=== PATIENT | female | born 1965 | race Caucasian/White ===

== ENCOUNTER 2016-02-15 13:43 | Outpatient (CLI) | payer MEDICARE, OTHER ==
[2009-01-15 12:52] VITALS: BP 91/48
[~2016-02-15] VITALS: Ht 160 cm; Wt 104.0 kg
[~2016-02-15 13:43] MED LIST: AMARYL1 MG PO; AMITRIPTYLINE H25 M1 PO; AMITRIPTYLINE H75 M1 PO; ATIVAN 1MG T1 MG/TAB PO; CO Q10 PO; CO Q1030 MG PO; DOMPERIDONE10 MG/CAP PO; ELAVIL100 MG PO; ESTROPIPATE; GLUCOPHAGE500 MG/TAB PO; INDERAL 20MG20 MG PO; KEPPRA500 MG PO; L-CARNITINE500 MG PO; LEVBID0.375 MG; LEVOCARNITINE PO; LEVOTHROID0.125 MG PO; LEVSIN 0.10.125 MG/T PO; LORTAB 7.5/5001 TAB PO; MULTIPLE VITAMI1 CAP PO; NORCO 325 MG-7.1 TAB PO; OGEN 0.6250.75 MG PO; PRILOSEC 20MG20 MG PO; SYNTHROID 0.10.15 MG PO; SYNTHROID0.137 MG PO; TRIAZADONE; VICODIN PO; ZOFRAN 8MG8 MG PO; ZONEGRAN 100MG100 MG PO; ZONISAMIDE25 MG PO; ZYRTEC5 MG PO
[2016-02-15 14:30] VITALS: BP 110/73; PULSE 91; TEMP 98
== END 2016-02-15 14:50 | disposition home or self-care (01) ==
LOC: EUO 13:43
DX: G43.A0 Cyclical vomiting, in migraine, not intractable (principal); Z45.2 Encounter for adjustment and management of vascular access device
CPT/HCPCS: J1644

== ENCOUNTER 2016-03-22 13:56 | Outpatient (CLI) | payer MEDICARE, OTHER ==
[2009-01-15 12:52] VITALS: BP 91/48
[~2016-03-22] VITALS: Ht 160 cm; Wt 102.2 kg
[2016-03-22 14:31] VITALS: BP 106/57; PULSE 69; TEMP 97.8
== END 2016-03-22 14:33 | disposition home or self-care (01) ==
LOC: EUO 13:56
DX: Z45.2 Encounter for adjustment and management of vascular access device (principal); G43.A0 Cyclical vomiting, in migraine, not intractable
CPT/HCPCS: J1644

== ENCOUNTER 2016-04-24 12:45 | Outpatient (CLI) | payer MEDICARE, OTHER ==
[2009-01-15 12:52] VITALS: BP 91/48
[~2016-04-24] VITALS: Ht 160 cm; Wt 99.0 kg
[2016-04-24 13:31] VITALS: BP 113/62; PULSE 62; TEMP 97.2
== END 2016-04-24 17:00 | disposition home or self-care (01) ==
LOC: EUO 12:45
DX: G43.A0 Cyclical vomiting, in migraine, not intractable (principal); Z45.2 Encounter for adjustment and management of vascular access device
CPT/HCPCS: J2997

== ENCOUNTER 2016-04-27 10:04 | Emergency (ER) | payer MEDICARE, OTHER ==
[2009-01-15 12:52] VITALS: BP 91/48
[~2016-04-27] VITALS: Ht 160 cm; Wt 99.1 kg
[2016-04-27 10:07] VITALS: BP 129/95; TEMP 96.6
[2016-04-27 10:48] LABS: BASO % 0.2 % (0.0-2.0); EOS # 0.1 (0.0-0.7); EOS % 0.9 % (0-4.0); GRAN # 7.5 (1.4-6.5); GRAN % 78.6 % (42.2-75.2); HEMATOCRIT 46.8 % (37.0-47.0); HEMOGLOBIN 15.3 g/dl (12.5-16.0); LYMPH # 1.6 (1.2-3.4); LYMPH % 16.5 % (20.0-51.0); MEAN CELL VOLUME 85 fl (80.0-100.0); MEAN CORPUSCULAR HEMOGLOBIN 28 pg (27.0-31.0); MEAN CORPUSCULAR HGB CONC 33 g/dl (33.0-37.0); MEAN PLATELET VOLUME 11.6 fl (7.4-10.4); MONO # 0.3 (0.1-0.6); MONO % 3.5 % (1.7-9.3); PLATELET COUNT 308 K/mm3 (130-400); RED BLOOD COUNT 5.51 M/mm3 (4.10-5.30); REDCELL DISTRIBUTION WIDTH-CV 13.3 % (11.5-14.5); WHITE BLOOD COUNT 9.5 K/mm3 (4.8-10.8)
[2016-04-27 10:55] LABS: ADJUSTED CALCIUM 9.9 mg/dL (8.4-10.2); ALANINE AMINOTRANSFERASE 61 U/L (9-52); ALBUMIN 4.8 gm/dL (3.5-5.0); ALKALINE PHOSPHATASE 101 U/L (50-136); ANION GAP 17 mmol/L (7-16); BILIRUBIN,TOTAL 0.7 mg/dL (0.0-1.0); BLOOD UREA NITROGEN 12 mg/dL (7-17); CALCIUM 10.5 mg/dL (8.4-10.2); CARBON DIOXIDE 23 mmol/L (22-30); CHLORIDE 102 mmol/L (98-107); CREATININE, serum 0.67 mg/dL (0.52-1.25); GLUCOSE 178 mg/dL (74-106); LIPASE 38 U/L (23-300); SODIUM 141 mmol/L (137-145); TOTAL PROTEIN 8.7 gm/dL (6.4-8.2)
[2016-04-27 11:14] LABS: TROPONIN-I < 0.012 ng/mL (0.000-0.034)
[2016-04-27 11:43] LABS: PH 5 (5-8); SQUAMOUS EPITHELIAL 0-2 /hpf; URINE APPEARANCE Clear; URINE BACTERIA Rare /hpf; URINE BILIRUBIN Negative (NEGATIVE); URINE BLOOD Negative (NEGATIVE); URINE COLOR Yellow; URINE GLUCOSE Negative (NEGATIVE); URINE KETONE 2+ (NEGATIVE); URINE RBC 0-2 /hpf; URINE UROBILINOGEN Negative (NEGATIVE); URINE WBC 0-2 /hpf
[2016-04-27 11:51] VITALS: PULSE 82
== END 2016-04-27 11:52 | disposition home or self-care (01) ==
LOC: COL.ER 10:04
PROVIDERS: Family Medicine
DX: E86.9 Volume depletion, unspecified (principal); G43.A0 Cyclical vomiting, in migraine, not intractable; Z79.84 Long term (current) use of oral hypoglycemic drugs; R00.0 Tachycardia, unspecified; R10.13 Epigastric pain; R07.89 Other chest pain
CPT/HCPCS: J1200; J2060; J2405; J7030

== ENCOUNTER 2016-05-02 14:54 | Outpatient (CLI) | payer MEDICARE, OTHER ==
[2009-01-15 12:52] VITALS: BP 91/48
[~2016-05-02] VITALS: Ht 160 cm; Wt 98.6 kg
[2016-05-02 17:11] VITALS: BP 115/58; PULSE 75; TEMP 96.9
== END 2016-05-02 20:06 | disposition home or self-care (01) ==
LOC: EUO 14:54
DX: E86.0 Dehydration (principal); R11.10 Vomiting, unspecified
CPT/HCPCS: J1200; J2060; J3480; J7030

== ENCOUNTER 2016-05-06 21:29 | Emergency (ER) | payer MEDICARE, OTHER ==
[2009-01-15 12:52] VITALS: BP 91/48
[~2016-05-06] VITALS: Ht 160 cm; Wt 95.5 kg
[2016-05-06 21:35] VITALS: BP 159/78; TEMP 97.5
[2016-05-06] MEDS ORDERED: ZOFRAN ODT8 MG PO (21:40)
[2016-05-06 22:59] LABS: BASO # 0.1 (0.0-0.2); BASO % 0.8 % (0.0-2.0); EOS # 0.4 (0.0-0.7); EOS % 4.3 % (0-4.0); GRAN # 5.2 (1.4-6.5); GRAN % 57.5 % (42.2-75.2); HEMATOCRIT 45.6 % (37.0-47.0); LYMPH # 2.6 (1.2-3.4); LYMPH % 28.7 % (20.0-51.0); MEAN CELL VOLUME 83 fl (80.0-100.0); MEAN CORPUSCULAR HEMOGLOBIN 27 pg (27.0-31.0); MEAN CORPUSCULAR HGB CONC 33 g/dl (33.0-37.0); MONO # 0.8 (0.1-0.6); MONO % 8.3 % (1.7-9.3); PLATELET COUNT 277 K/mm3 (130-400); RED BLOOD COUNT 5.47 M/mm3 (4.10-5.30); REDCELL DISTRIBUTION WIDTH-CV 13.3 % (11.5-14.5); WHITE BLOOD COUNT 9.1 K/mm3 (4.8-10.8)
[2016-05-06 23:13] LABS: HYALINE CAST >12 /lpf; PH 5 (5-8); URINE APPEARANCE Cloudy; URINE BACTERIA Rare /hpf; URINE BILIRUBIN Negative (NEGATIVE); URINE BLOOD Negative (NEGATIVE); URINE COLOR Amber; URINE GLUCOSE Negative (NEGATIVE); URINE KETONE Trace (NEGATIVE); URINE RBC 0-2 /hpf; URINE WBC 0-2 /hpf
[2016-05-06 23:14] LABS: ADJUSTED CALCIUM 9.8 mg/dL (8.4-10.2); ALBUMIN 4.5 gm/dL (3.5-5.0); BILIRUBIN,TOTAL 0.8 mg/dL (0.0-1.0); CALCIUM 10.2 mg/dL (8.4-10.2); CREATININE, serum 0.74 mg/dL (0.52-1.25); POTASSIUM 3.4 mmol/L (3.4-5.0); TOTAL PROTEIN 8.1 gm/dL (6.4-8.2)
[2016-05-07] MEDS ORDERED: ZOFRAN 4MG T4 MG/TAB PO (01:12)
[2016-05-07 01:25] VITALS: PULSE 84
[2016-05-08] MEDS ORDERED: TRIAMCINOLONE A15 G1 TP (13:14)
[2016-05-08] MEDS ORDERED: ZYRTEC 10MG10 MG PO (13:16)
== END 2016-05-07 01:25 | disposition home or self-care (01) ==
LOC: COL.ER 21:29
PROVIDERS: Nurse Practitioner
DX: G43.A0 Cyclical vomiting, in migraine, not intractable (principal); E11.9 Type 2 diabetes mellitus without complications; R19.7 Diarrhea, unspecified; Z79.84 Long term (current) use of oral hypoglycemic drugs
CPT/HCPCS: J1200; J2060; J2405; J7030

== ENCOUNTER 2016-05-08 12:18 | Observation (INO) | payer MEDICARE, OTHER ==
[~2016-05-08] VITALS: Ht 160 cm; Wt 95.4 kg
[~2016-05-08 12:18] MED LIST changes: +ZOFRAN 4MG T4 MG/TAB PO; +ZOFRAN ODT8 MG PO
[2016-05-08] MEDS ORDERED: TRIAMCINOLONE A15 G1 TP (13:14)
[2016-05-08] MEDS ORDERED: ZYRTEC 10MG10 MG PO (13:16)
[2016-05-08 13:27] VITALS: BP 130/64; PULSE 77; TEMP 98.4
[2016-05-08 15:21] LABS: HEMATOCRIT 41.7 % (37.0-47.0); HEMOGLOBIN 13.4 g/dl (12.5-16.0); MEAN CELL VOLUME 86 fl (80.0-100.0); MEAN CORPUSCULAR HEMOGLOBIN 28 pg (27.0-31.0); MEAN CORPUSCULAR HGB CONC 32 g/dl (33.0-37.0); PLATELET COUNT 222 K/mm3 (130-400); RED BLOOD COUNT 4.88 M/mm3 (4.10-5.30); REDCELL DISTRIBUTION WIDTH-CV 13.4 % (11.5-14.5); WHITE BLOOD COUNT 7.3 K/mm3 (4.8-10.8)
[2016-05-08 15:23] LABS: ADD PATHOLOGY DIFF REVIEW NO
[2016-05-08 15:36] LABS: ADJUSTED CALCIUM 9.5 mg/dL (8.4-10.2); BILIRUBIN,TOTAL 0.8 mg/dL (0.0-1.0); CALCIUM 9.5 mg/dL (8.4-10.2); CREATININE, serum 0.77 mg/dL (0.52-1.25); MAGNESIUM 1.8 mg/dL (1.6-2.3); POTASSIUM 3.6 mmol/L (3.4-5.0); TOTAL PROTEIN 7.2 gm/dL (6.4-8.2)
[2016-05-08 15:56] LABS: BAND 4 % (0-10); EOSINOPHIL 2 % (0-4); METAMYELOCYTE 1 % (0-0); MICROCYTOSIS 1+; NEUTROPHILS 50 % (42.0-75.2); PLATELET ESTIMATE NORMAL (NORMAL); TOTAL CELLS COUNTED 100
[2016-05-08 16:03] VITALS: BP 104/57; PULSE 72; TEMP 98.1
[2016-05-08 21:02] VITALS: BP 118/57; PULSE 78; TEMP 97.9
[2016-05-08 21:06] VITALS: BP 118/57; PULSE 78; TEMP 97.8
[2016-05-09 07:13] LABS: PH 5 (5-8); SQUAMOUS EPITHELIAL 0-2 /hpf; URINE APPEARANCE Clear; URINE BACTERIA None Seen /hpf; URINE BILIRUBIN Negative (NEGATIVE); URINE BLOOD Negative (NEGATIVE); URINE COLOR Yellow; URINE GLUCOSE Negative (NEGATIVE); URINE KETONE 2+ (NEGATIVE); URINE RBC 0-2 /hpf; URINE UROBILINOGEN Negative (NEGATIVE)
[2016-05-09 08:27] VITALS: BP 119/57; PULSE 61; TEMP 97.9
[2016-05-09 09:18] LABS: CALCIUM 8.5 mg/dL (8.4-10.2); CREATININE, serum 0.61 mg/dL (0.52-1.25); POTASSIUM 3.5 mmol/L (3.4-5.0)
[2016-05-09 11:11] VITALS: BP 123/54; PULSE 60; TEMP 98.1
[2016-05-09 23:48] VITALS: BP 119/73; PULSE 99; TEMP 98.7
[2016-05-10 08:00] VITALS: PULSE 60
[2016-05-10] MEDS ORDERED: ATIVAN 1MG T1 MG/TAB PO (10:11)
[2016-05-10 11:54] VITALS: PULSE 65
== END 2016-05-10 18:00 | disposition home or self-care (01) ==
LOC: MEDICAL 12:18
PROVIDERS: Physician Assistant
DX: G43.A0 Cyclical vomiting, in migraine, not intractable (principal); E86.0 Dehydration; E11.9 Type 2 diabetes mellitus without complications; E03.9 Hypothyroidism, unspecified; J45.909 Unspecified asthma, uncomplicated; L20.9 Atopic dermatitis, unspecified; K21.9 Gastro-esophageal reflux disease without esophagitis; Z85.3 Personal history of malignant neoplasm of breast
CPT/HCPCS: G0378; G0379; J1650; J2060; J2270; J2405; J3410; J7030

== ENCOUNTER → 2016-06-12 | Outpatient (CLI) | payer MEDICARE, OTHER ==
[~2016-06-12] VITALS: Ht 160 cm; Wt 95.0 kg
[~2016-06-12] MED LIST changes: +TRIAMCINOLONE A15 G1 TP; +ZYRTEC 10MG10 MG PO
[2016-06-12 13:20] VITALS: BP 103/51; PULSE 51; TEMP 97.5
== END ==
LOC: EUO 05-25 13:00
DX: G43.A0 Cyclical vomiting, in migraine, not intractable (principal)

== ENCOUNTER → 2016-07-05 | Outpatient (CLI) | payer MEDICARE, OTHER | LOC: MHCPAIN 09:30 | DX: G89.29 Other chronic pain (principal); M79.651 Pain in right thigh; G57.11 Meralgia paresthetica, right lower limb | CPT/HCPCS: G0463; J1040 ==

== ENCOUNTER → 2016-08-04 | Outpatient (CLI) | payer MEDICARE, OTHER | LOC: MHCPAIN 09:08 | DX: G89.29 Other chronic pain (principal); M79.659 Pain in unspecified thigh; M79.2 Neuralgia and neuritis, unspecified | CPT/HCPCS: G0463 ==

== ENCOUNTER → 2016-08-09 | Outpatient (CLI) | payer MEDICARE, OTHER | LOC: MHCPAIN 10:16 | DX: G57.11 Meralgia paresthetica, right lower limb (principal) | CPT/HCPCS: J1040 ==

== ENCOUNTER → 2016-10-10 | Outpatient (CLI) | payer MEDICARE, OTHER | LOC: MHCPAIN 12:30 | DX: G89.29 Other chronic pain (principal); M79.2 Neuralgia and neuritis, unspecified; M79.659 Pain in unspecified thigh; R20.8 Other disturbances of skin sensation | CPT/HCPCS: G0463 ==

== ENCOUNTER 2016-10-17 14:45 | Outpatient (CLI) | payer MEDICARE, OTHER ==
[2016-10-17 15:00] VITALS: BP 118/50; PULSE 72; TEMP 98.3
== END 2016-10-17 17:30 | disposition home or self-care (01) ==
LOC: EUO 14:45
DX: G43.A0 Cyclical vomiting, in migraine, not intractable (principal)
CPT/HCPCS: J1644

== ENCOUNTER 2017-05-02 14:49 | Outpatient (CLI) | payer MEDICARE, OTHER ==
[~2017-05-02] VITALS: Ht 160 cm; Wt 99.0 kg
[~2017-05-02 14:49] MED LIST changes: +ZONEGRAN50 MG PO
[2017-05-02 15:30] VITALS: BP 117/47; PULSE 65; TEMP 97.6
== END 2017-05-02 16:00 | disposition home or self-care (01) ==
LOC: EUO 14:49
DX: Z45.2 Encounter for adjustment and management of vascular access device (principal); Z48.00 Encounter for change or removal of nonsurgical wound dressing
CPT/HCPCS: J1644

== ENCOUNTER 2017-05-16 13:08 | Outpatient (RCR) | payer MEDICARE, OTHER | END 2017-06-27 08:20 | disposition home or self-care (01) | LOC: WSPT 13:08 | DX: M76.51 Patellar tendinitis, right knee (principal); Z90.710 Acquired absence of both cervix and uterus; Z90.49 Acquired absence of other specified parts of digestive tract | CPT/HCPCS: G8978-GP; G8979-GP ==

== ENCOUNTER → 2017-06-22 | Outpatient (CLI) | payer MEDICARE, OTHER ==
[~2017-06-22] VITALS: Ht 160 cm; Wt 96.0 kg
[2017-06-22 13:59] VITALS: BP 120/69; PULSE 96; TEMP 98
== END ==
LOC: EUO 12:07
DX: G43.A0 Cyclical vomiting, in migraine, not intractable (principal); E86.0 Dehydration; Z45.2 Encounter for adjustment and management of vascular access device; Z79.84 Long term (current) use of oral hypoglycemic drugs; Z79.891 Long term (current) use of opiate analgesic; Z79.899 Other long term (current) drug therapy
CPT/HCPCS: J1200; J1644; J2060; J3480; J7030

== ENCOUNTER → 2017-09-07 | Outpatient (CLI) | payer MEDICARE, OTHER | LOC: MC.RAD 08-06 11:20 | DX: Z12.31 Encounter for screening mammogram for malignant neoplasm of breast (principal) ==

== ENCOUNTER → 2018-04-09 | Outpatient (CLI) | payer MEDICARE, OTHER | LOC: SUN.DIA 08:37 | DX: E11.9 Type 2 diabetes mellitus without complications (principal); E66.9 Obesity, unspecified ==

== ENCOUNTER → 2018-04-18 | Outpatient (CLI) | payer MEDICARE, OTHER | LOC: SUN.DIA 09:30 | DX: E11.9 Type 2 diabetes mellitus without complications (principal); E66.9 Obesity, unspecified | CPT/HCPCS: G0109 ==

== ENCOUNTER → 2018-04-25 | Outpatient (CLI) | payer MEDICARE, OTHER | LOC: SUN.DIA 09:30 | DX: E66.01 Morbid (severe) obesity due to excess calories (principal); Z76.89 Persons encountering health services in other specified circumstances; Z71.3 Dietary counseling and surveillance | CPT/HCPCS: G0109 ==

== ENCOUNTER → 2018-05-02 | Outpatient (CLI) | payer MEDICARE, OTHER | LOC: SUN.DIA 09:30 | DX: E11.9 Type 2 diabetes mellitus without complications (principal); E66.9 Obesity, unspecified | CPT/HCPCS: G0109 ==

== ENCOUNTER → 2018-05-08 | Outpatient (CLI) | payer MEDICARE, OTHER | LOC: SUN.DIA 08:39 | DX: E11.9 Type 2 diabetes mellitus without complications (principal); E66.9 Obesity, unspecified ==

== ENCOUNTER → 2018-08-06 | Outpatient (CLI) | payer MEDICARE, OTHER ==
[~2018-08-06] MED LIST changes: +GLUCOPHAGE1000 MG PO; -GLUCOPHAGE500 MG/TAB PO; +LEXAPRO20 MG PO; -SYNTHROID 0.10.15 MG PO; +SYNTHROID0.175 MG PO; +VENTOLIN0.09 MG IH
== END ==
LOC: LIGHT 15:56
DX: Z76.89 Persons encountering health services in other specified circumstances (principal); E66.01 Morbid (severe) obesity due to excess calories

== ENCOUNTER 2018-08-13 06:23 | Day surgery (SDC) | payer MEDICARE, OTHER ==
[2009-01-15 12:52] VITALS: BP 91/48
[~2018-08-13] VITALS: Ht 157.5 cm; Wt 99.7 kg
[2018-08-13 06:48] VITALS: BP 117/58; PULSE 68; TEMP 97.8
[2018-08-13] MEDS ORDERED: ZONEGRAN50 MG PO (07:23)
[2018-08-13] MEDS ORDERED: JARDIANCE10 PO (07:24)
[2018-08-13] MEDS ORDERED: 00186-0372-20 IH (07:28)
[2018-08-13 07:55] VITALS: BP 95/63; PULSE 75
--- NOTE | 2018-08-13 08:03 | NUR ---
0755 PATIENT TO BAY 2 POST EGD ACCOMPANIED BY ENDO STAFF. PT AMBULATED WITH 1 ASSIST FROM CART TO CHAIR. PATIENT DROWSY BUT DOES TALK WITH STAFF. MONITORS APPLIED. VSS. 0759 PATIENT SAO2 DECREASES TO 89%. O2 APPLIED AT 2 LITERS PER N/C. SAO2 MAINTAINS ABOVE 92%.
[2018-08-13 08:15] VITALS: BP 95/46; PULSE 66
--- NOTE | 2018-08-13 08:15 | NUR ---
PATIENT RESTING IN CHAIR WITH EYE CLOSED AND RELAXED. O2 ON AT 2 LITERS PER N/C WITH SATS MAINTAINING ABOVE 93%. NO C/O VOICED.
[2018-08-13 08:30] VITALS: BP 98/46; PULSE 62
--- NOTE | 2018-08-13 08:30 | NUR ---
PATIENT CONTINUES RESTING. O2 REMAIN ON AT 2 LITERS PER N/C. PATIENT WAKES AND TALKS WITH STAFF. PT STATES VERY DROWSY. VSS.
[2018-08-13 08:45] VITALS: BP 90/40; PULSE 68
--- NOTE | 2018-08-13 08:45 | NUR ---
O2 discontinued. Muffin and juice given per pt request. Will continue to monitor. Call light within reach.
[2018-08-13 09:00] VITALS: BP 100/48; PULSE 70
--- NOTE | 2018-08-13 09:00 | NUR ---
Discharge instructions reviewed. Pt voices understanding. IV site discontinued with all parts intact. Pt up to dress. Call light within reach.
--- NOTE | 2018-08-13 09:30 | NUR ---
Pt waiting for taxi service with Katerina BEAULIEU in patient entrance lobby. Have called [employer] for slate picker, as they said they were available for quick slate picker. No one has showed up yet. Taxi service called again and message left.
--- NOTE | 2018-08-13 10:05 | NUR ---
[employer] never showed up. New taxi service called[employer] and picked patient up. Pt dismissed home.
== END 2018-08-13 10:05 | disposition home or self-care (01) ==
LOC: SDCO 06:23
DX: K21.0 Gastro-esophageal reflux disease with esophagitis (principal); K29.30 Chronic superficial gastritis without bleeding; E66.01 Morbid (severe) obesity due to excess calories; Z68.38 Body mass index [BMI] 38.0-38.9, adult; Z90.721 Acquired absence of ovaries, unilateral; Z90.49 Acquired absence of other specified parts of digestive tract; Z90.710 Acquired absence of both cervix and uterus; E11.9 Type 2 diabetes mellitus without complications; E03.9 Hypothyroidism, unspecified; M72.2 Plantar fascial fibromatosis; K21.9 Gastro-esophageal reflux disease without esophagitis; F32.9 Major depressive disorder, single episode, unspecified; J45.998 Other asthma; G43.909 Migraine, unspecified, not intractable, without status migrainosus; F41.9 Anxiety disorder, unspecified; Z79.84 Long term (current) use of oral hypoglycemic drugs; Z88.0 Allergy status to penicillin; Z88.5 Allergy status to narcotic agent; Z88.6 Allergy status to analgesic agent; Z91.048 Other nonmedicinal substance allergy status; Z88.1 Allergy status to other antibiotic agents; K31.89 Other diseases of stomach and duodenum; R11.10 Vomiting, unspecified; M19.90 Unspecified osteoarthritis, unspecified site
CPT/HCPCS: J2250; J3010; J7030

== ENCOUNTER → 2018-09-19 | Outpatient (CLI) | payer MEDICARE, OTHER ==
[~2018-09-19] MED LIST changes: +00186-0372-20 IH; +JARDIANCE10 PO
== END ==
LOC: MC.RAD 16:51
DX: Z12.31 Encounter for screening mammogram for malignant neoplasm of breast (principal)

== ENCOUNTER → 2018-11-14 | Outpatient (CLI) | payer MEDICARE, OTHER ==
[~2018-11-14] VITALS: Ht 161.3 cm; Wt 100.0 kg
[2018-11-14 16:10] VITALS: BP 122/80; PULSE 76
== END ==
LOC: LIGHT 08-09 08:58
DX: E11.65 Type 2 diabetes mellitus with hyperglycemia (principal); E03.9 Hypothyroidism, unspecified; J45.909 Unspecified asthma, uncomplicated; E66.9 Obesity, unspecified; Z68.39 Body mass index [BMI] 39.0-39.9, adult; Z71.3 Dietary counseling and surveillance
CPT/HCPCS: G0463

== ENCOUNTER → 2018-12-26 | Outpatient (CLI) | payer MEDICARE, OTHER ==
[~2018-12-26] VITALS: Ht 158.8 cm; Wt 100.7 kg
[2018-12-26 10:14] VITALS: BP 126/72; PULSE 64
== END ==
LOC: LIGHT 09:59
DX: E11.65 Type 2 diabetes mellitus with hyperglycemia (principal); E03.9 Hypothyroidism, unspecified; J45.909 Unspecified asthma, uncomplicated; E66.9 Obesity, unspecified; Z68.42 Body mass index [BMI] 45.0-49.9, adult; Z71.3 Dietary counseling and surveillance
CPT/HCPCS: G0463

== ENCOUNTER 2019-03-04 15:17 | Inpatient (IN) | payer MEDICARE, OTHER ==
[~2019-03-04] VITALS: Ht 158.8 cm; Wt 100.0 kg
[2019-03-12] VITALS (15 sets, daily range): BP systolic 126–171; BP diastolic 58–83; PULSE 52–88; TEMP 97.4–98.1
[2019-03-12] MEDS ORDERED: INDERAL 20MG20 MG PO (08:38)
[2019-03-12] MEDS ORDERED: SYNTHROID0.175 MG PO (08:41)
[2019-03-12] MEDS ORDERED: GLUCOPHAGE500 MG/TAB PO (08:41)
[2019-03-12] MEDS ORDERED: JARDIANCE10 PO (08:42)
[2019-03-12] MEDS ORDERED: ZONEGRAN50 MG PO (08:43)
[2019-03-12] MEDS ORDERED: ELAVIL150 MG PO (08:44)
[2019-03-12] MEDS ORDERED: ZYRTEC 10MG10 MG PO (08:44)
[2019-03-12] MEDS ORDERED: LEXAPRO20 MG PO (08:45)
[2019-03-12] MEDS ORDERED: PRILOSEC 20MG20 MG PO (08:45)
[2019-03-12] MEDS ORDERED: CALCIUM 600MG+D1 TAB PO (08:46)
[2019-03-12] MEDS ORDERED: FLINTSTONES W/I1 CTB PO (08:46)
[2019-03-12] MEDS ORDERED: ZOFRAN ODT8 MG PO (08:47)
[2019-03-12] MEDS ORDERED: ATIVAN 1MG T1 MG/TAB PO (08:48)
[2019-03-12] MEDS ORDERED: NORCO 325 MG-7.1 TAB PO (08:49)
--- NOTE | 2019-03-12 12:24 | NUR ---
Patient brought to room via bed by PACU staff. Rating pain in abd 9/10 and describes as squeezing sensation. Patient falls back asleep. Four lap sites to abd with incisions well approximated. WAYLON drain with dressing CDI and scant amount of serosanguinous drainage in bulb.
--- NOTE | 2019-03-12 12:49 | NUR ---
Administered Dilaudid as prescribed for pain 10/22.
--- NOTE | 2019-03-12 13:21 | NUR ---
Continues to rate pain 9/10. Patient says that she is aware that she will have pain and understands at this time she cannot have any more pain medication. Patient does fall back asleep when she is done talking. While patient was awake encouraged to take sips of Gatorade and patient perfored.
--- NOTE | 2019-03-12 14:06 | NUR ---
Patient having nausea and requests medication. Administered Zofran as prescribed. Patient was up and ambulated to bathroom to urinate. Denies needs at this time.
--- NOTE | 2019-03-12 14:48 | NUR ---
Continues to rate pain /10. Administered Dilaudid as prescribed. Patient denies further needs at this time.
--- NOTE | 2019-03-12 15:11 | NUR ---
Patient to radiology via wheelchair for barium study exam.
--- NOTE | 2019-03-12 15:31 | NUR ---
Patient returns from radiology and assisted to bed.
--- NOTE | 2019-03-12 17:45 | NUR ---
Sitting up in chair. Rating pain in abd 9/10, describes as squeezing. Patient says that she is "slowly" working on her clear liquid dinner. Administered Dilaudid as prescribed. Patient denies further needs.
--- NOTE | 2019-03-12 18:14 | NUR ---
Rates pain 6/10. Patient assisted back into the bed. Denies further needs at this time.
--- NOTE | 2019-03-12 20:00 | NUR ---
AMBULATED WITH PATIENT AROUND THE SURGICAL UNIT X2. PATIENT HAS STEADY GAIT AND DOES WELL. IS ALERT AND ORIENTED X4. IVF TO LEFT FOREARM WITHOUT REDNESS OR SWELLING. REPORTS PAIN MINIMAL AT THIS TIME. LAP SITES X4 NOTED, GLUED AND DRY. VOIDING WITHOUT PROBLEM.
--- NOTE | 2019-03-12 21:41 | NUR ---
PATIENT TAKES HS MEDS INCLUDING OXYCODONE 5MG PO AT THIS TIME. HS BLOOD IVQLT=430.
[2019-03-13 04:00] VITALS: BP 107/58; PULSE 63; TEMP 98
--- NOTE | 2019-03-13 06:00 | NUR ---
PATIENT MEDICATED WITH AM MEDS INCLUDING OXYCODONE 5MG PO FOR ABDOMINAL DISCOMFORT. WAYLON EMPTIED FOR 20CC OF SEROSANGUINOUS DRAINAGE.
[2019-03-13 07:38] VITALS: BP 133/59; PULSE 60; TEMP 97.8
--- NOTE | 2019-03-13 08:00 | NUR ---
Patient in bed resting. Alert and oriented x 3. Assessment complete. Lap sites x4 with edges well approximated. WAYLON to right quadrant with serous fluid present, gauze at WAYLON site is CDI. Fluids infusing per orders. Denies pain or further needs at this time.
--- NOTE | 2019-03-13 11:08 | NUR ---
[employer] Work[employer] met with patient to discuss discharge planning. Patient lives alone in [place] and sees Dr. Nguyễn for primary care. Patient obtains medications from [facility] with no difficulties. Patient does not use any DME and reports independence with ADLS. Patient reports she has DPOA-HC set up but SW did not locate copy in EMR. Patient plans to return home upon discharge and has transportation arrangements. No additional concerns at this time.
[2019-03-13 11:13] VITALS: BP 121/48; PULSE 57; TEMP 97.4
--- NOTE | 2019-03-13 11:25 | NUR ---
Initial visit; Patient thanked Rides Supervisor for looking in on her, offering spiritual care, especially prayer. Rides Supervisor will follow up.
[2019-03-13] MEDS ORDERED: NORCO 325 MG-51 TAB PO (12:39)
--- NOTE | 2019-03-13 13:15 | NUR ---
WAYLON drain discontinued per orders, patient tolerated procedure well. Gauze and tegaderm dressing applied to site.
--- NOTE | 2019-03-13 14:10 | NUR ---
Discharge instructions provided to patient. Educated on signs and symptoms of infection and when to call provider. Patient educated activity and new medications. All questions answered. Denies further needs at this time. INT discontinued, catheter tip intact. Continues to deny pain. Denies further needs at this time. Patient out by wheelchair with surgical staff and family.
== END 2019-03-13 14:10 | disposition home or self-care (01) | DRG 621 ==
LOC: INPTSU 03-12 07:05 → SURG 03-12 12:15
PROVIDERS: ADMIT Surgery
PROC: 0DB64Z3 Excision of Stomach, Percutaneous Endoscopic Approach, Vertical (ICD-10-PCS; principal; 2019-03-12 08:00)
DX: E66.01 Morbid (severe) obesity due to excess calories (principal); E11.9 Type 2 diabetes mellitus without complications; G43.909 Migraine, unspecified, not intractable, without status migrainosus; F41.9 Anxiety disorder, unspecified; F32.9 Major depressive disorder, single episode, unspecified; K21.9 Gastro-esophageal reflux disease without esophagitis; E03.9 Hypothyroidism, unspecified; M19.90 Unspecified osteoarthritis, unspecified site; Z68.41 Body mass index [BMI] 40.0-44.9, adult; Z90.49 Acquired absence of other specified parts of digestive tract; Z90.710 Acquired absence of both cervix and uterus; Z91.048 Other nonmedicinal substance allergy status; Z88.0 Allergy status to penicillin; Z88.5 Allergy status to narcotic agent
CPT/HCPCS: J0171; J0330; J0690; J1100; J1170; J2405; J2550; J2704; J3010; J3480; J7120

== ENCOUNTER → 2019-08-04 | Outpatient (CLI) | payer MEDICARE, OTHER ==
[~2019-08-04] VITALS: Ht 158.8 cm; Wt 84.4 kg
[~2019-08-04] MED LIST changes: +CALCIUM 600MG+D1 TAB PO; +ELAVIL150 MG PO; +FLINTSTONES W/I1 CTB PO; +GLUCOPHAGE500 MG/TAB PO; +NORCO 325 MG-51 TAB PO
[2019-08-04 13:19] VITALS: BP 124/76; PULSE 72
== END ==
LOC: LIGHT 13:06
DX: E66.8 Other obesity (principal); Z68.33 Body mass index [BMI] 33.0-33.9, adult; Z98.84 Bariatric surgery status; E11.9 Type 2 diabetes mellitus without complications
CPT/HCPCS: G0463

== ENCOUNTER → 2019-08-22 | Outpatient (CLI) | payer MEDICARE, OTHER | LOC: ZCOL.LAB 15:46 | DX: R05 Cough (principal); R53.83 Other fatigue; Z20.828 Contact with and (suspected) exposure to other viral communicable diseases ==